=== PATIENT | female | born 1940 | race Two or more races ===

== ENCOUNTER 2017-11-14 09:39 | Emergency (ER) | payer OTHER ==
[~2017-11-14] VITALS: Ht 162.6 cm; Wt 59.0 kg
[2017-11-14] MEDS ORDERED: TOPROL XL25 M1 (10:06)
[2017-11-14] MEDS ORDERED: SYNTHROID100 MCG (10:06)
[2017-11-14] MEDS ORDERED: COZAAR25 MG (10:06)
[2017-11-14] MEDS ORDERED: CRESTOR5 MG (10:06)
[2017-11-14] MEDS ORDERED: CIPRO500 MG PO (14:53)
[2017-11-14] MEDS ORDERED: FLAGYL500MG PO (14:53)
[2017-11-14] MEDS ORDERED: INTESTINEX680 M1 PO (14:53)
[2017-11-14] MEDS ORDERED: PEPCID20 MG PO (14:53)
== END 2017-11-14 21:01 | disposition home or self-care (01) ==
LOC: ER 09:39
DX: R10.32 Left lower quadrant pain (principal)

== ENCOUNTER 2018-01-13 10:46 | Emergency (ER) | payer OTHER ==
[~2018-01-13] VITALS: Ht 160 cm; Wt 58.1 kg
[~2018-01-13 10:46] MED LIST: CIPRO500 MG PO; COZAAR25 MG; CRESTOR5 MG; FLAGYL500MG PO; INTESTINEX680 M1 PO; PEPCID20 MG PO; SYNTHROID100 MCG; TOPROL XL25 M1
== END 2018-01-13 15:24 | disposition home or self-care (01) ==
LOC: ER 10:46
DX: K52.89 Other specified noninfective gastroenteritis and colitis (principal); R10.84 Generalized abdominal pain

== ENCOUNTER 2018-01-14 10:53 | Emergency (ER) | payer OTHER ==
[~2018-01-14] VITALS: Ht 157.5 cm; Wt 59.0 kg
== END 2018-01-14 17:15 | disposition home or self-care (01) ==
LOC: ER 10:53
DX: K59.09 Other constipation (principal); K66.0 Peritoneal adhesions (postprocedural) (postinfection); R10.84 Generalized abdominal pain

== ENCOUNTER 2018-02-07 10:05 | Emergency (ER) | payer OTHER ==
[~2018-02-07] VITALS: Ht 162.6 cm; Wt 54.9 kg
[2018-02-07] MEDS ORDERED: HYDRODIURIL12.5 MG (10:14)
== END 2018-02-07 15:57 | disposition home or self-care (01) ==
LOC: ER 10:05
DX: K52.9 Noninfective gastroenteritis and colitis, unspecified (principal)

== ENCOUNTER 2020-06-08 08:43 | Emergency (ER) | payer OTHER ==
[~2020-06-08] VITALS: Ht 162.6 cm; Wt 59.0 kg
[~2020-06-08 08:43] MED LIST changes: +HYDRODIURIL12.5 MG
[2020-06-08] MEDS ORDERED: ORPHENADRINE C100 MG PO (12:44)
[2020-06-08] MEDS ORDERED: CELECOXIB100 MG PO (12:44)
[2020-06-08] MEDS ORDERED: VOLTAREN100 GM TOP (12:44)
== END 2020-06-08 12:46 ==
LOC: ER 08:43
DX: S23.41XA Sprain of ribs, initial encounter (principal); S20.212S Contusion of left front wall of thorax, sequela; W18.09XS Striking against other object with subsequent fall, sequela

== ENCOUNTER → 2021-02-22 | Outpatient (CLI) | payer OTHER ==
[~2021-02-22] MED LIST changes: +CELECOXIB100 MG PO; +ORPHENADRINE C100 MG PO; +VOLTAREN100 GM TOP
== END | disposition home or self-care (01) ==
LOC: RAD 11:55
DX: I10 Essential (primary) hypertension (principal); R06.00 Dyspnea, unspecified

== ENCOUNTER 2021-04-10 14:41 | Emergency (ER) | payer OTHER ==
[~2021-04-10] VITALS: Ht 162.6 cm; Wt 59.0 kg
[2021-04-10] MEDS ORDERED: TESSALON PERLE100 M1 PO (19:43)
[2021-04-10] MEDS ORDERED: ZITHROMAX500 MG PO ×2 (19:43→19:46)
== END 2021-04-10 20:25 | disposition home or self-care (01) ==
LOC: ER 14:41
DX: J06.9 Acute upper respiratory infection, unspecified (principal); Z03.818 Encounter for observation for suspected exposure to other biological agents ruled out